=== PATIENT | female | born 1945 | race African-American/Black ===

== ENCOUNTER → 2016-07-29 | Outpatient (REF) ==
[~2016-07-29] MED LIST: COLACE 100100 MG/CAP PO; NO HOME MEDICATIONS; NORCO 325 MG-51 TAB PO; NORCO 325 MG-7.1 TAB PO
== END ==
LOC: WSOH 09:25
DX: Z01.89 Encounter for other specified special examinations (principal)

== ENCOUNTER 2016-09-05 06:02 | Emergency (ER) | payer OTHER ==
[~2016-09-05] VITALS: Ht 162.6 cm; Wt 51.8 kg
[2016-09-05 06:07] VITALS: TEMP 99.6
[2016-09-05] MEDS ORDERED: NORCO 325 MG-51 TAB PO (07:13)
[2016-09-05 07:33] VITALS: BP 130/87; PULSE 115
== END 2016-09-05 07:33 | disposition home or self-care (01) ==
LOC: COL.ER 06:02
DX: S70.01XA Contusion of right hip, initial encounter (principal); W22.09XA Striking against other stationary object, initial encounter; Y92.009 Unspecified place in unspecified non-institutional (private) residence as the place of occurrence of the external cause; F17.210 Nicotine dependence, cigarettes, uncomplicated